=== PATIENT | female | born 1940 | race Hispanic/Latino ===

== ENCOUNTER 2021-07-25 07:50 | Day surgery (SDC) | payer MEDICARE ==
[2021-07-23 08:45] VITALS: BP 121/63
[2021-07-23 12:22] LABS: BASOPHILS % (AUTO) 0.4 % (0.0-5.0); EOSINOPHILS % (AUTO) 1.5 % (0.0-8.0); HEMATOCRIT 39.3 % (36-48); LYMPHOCYTES % (AUTO) 25.7 % (21.0-51.0); MEAN CORPUSCULAR HEMOGLOBIN 34.8 pg (27.0-33.0); MEAN CORPUSCULAR HGB CONC 31.8 g/dL (32.0-36.0); MEAN CORPUSCULAR VOLUME 109.5 fL (79-99); NEUTROPHILS % (AUTO) 65.5 % (40.0-77.0); PLATELET COUNT (AUTO) 201 K/uL (130-400); RED BLOOD CELL COUNT(AUTO) 3.59 MIL/uL (4.00-5.50); RED CELL DISTRIBUTION WIDTH 15.3 % (11.0-15.5); WHITE BLOOD COUNT (AUTO) 9.3 K/uL (4.8-10.8)
[2021-07-23 12:34] LABS: CREATININE 1.7 mg/dL (0.5-1.5); POTASSIUM 5.4 mmol/L (3.5-5.1)
[2021-07-23 12:35] LABS: INR 0.99 (0.85-1.15); PROTHROMBIN TIME 10.8 SEC (9.6-11.6)
[2021-07-23 12:37] LABS: PARTIAL THROMBOPLASTIN TIME 27.2 SEC (26.3-35.5)
[2021-07-23 12:57] LABS: APPEARANCE,URINE Clear (CLEAR); BILIRUBIN,URINE Negative (NEGATIVE); COLOR,URINE Yellow (YELLOW); GLUCOSE, URINE (UA) Negative (NEGATIVE); KETONES,URINE Negative (NEGATIVE); LEUKOCYTE ESTERASE ,URINE Negative (NEGATIVE); NITRATE,URINE Negative (NEGATIVE); OCCULT BLOOD,URINE Negative (NEGATIVE); PROTEIN,URINE Negative (NEGATIVE)
[2021-07-23 13:19] LABS: B-TYPE NATRIURETIC PEPTIDE 309 pg/mL (0-100)
[~2021-07-25] VITALS: Ht 152.4 cm; Wt 92.7 kg
[2021-07-25] VITALS (9 sets, daily range): BP systolic 115–169; BP diastolic 55–101
[2021-07-25] MEDS ORDERED: 0.9%NACL 1000ML 1,000 ML IV ONE (09:04)
[2021-07-25] MEDS ORDERED: BUME2TAB5 PO ×2 (09:24→13:20)
[2021-07-25] MEDS ORDERED: OLME40TA18 PO (09:24)
[2021-07-25] MEDS ORDERED: POTA-202 PO (09:24)
[2021-07-25] MEDS ORDERED: OMEP40CA21 PO (09:24)
[2021-07-25] MEDS ORDERED: METH4TAB16 PO (09:24)
[2021-07-25] MEDS ORDERED: TRAM50TA4 PO (09:24)
[2021-07-25] MEDS ORDERED: PRAV20TA4 PO (09:24)
[2021-07-25] MEDS ORDERED: LEVO50CA4 PO (09:24)
[2021-07-25] MEDS ORDERED: CARV12.511 PO (09:24)
[2021-07-25] MEDS ORDERED: SODIUM BICARB 50MEQ 50ML VIAL 50 ML ONE (12:32)
[2021-07-25] MEDS ORDERED: LIDOCAINE HCL 1% MDV 50ML VIAL ONE (12:32)
[2021-07-25] MEDS ORDERED: FUROSEMIDE 20MG VIAL IV ONE (14:25)
== END 2021-07-25 16:59 | disposition home or self-care (01) ==
LOC: DAH 07:50
PROVIDERS: ATTEND Internal Medicine Cardiovascular Disease
DX: I50.32 Chronic diastolic (congestive) heart failure (principal); R60.9 Edema, unspecified; I48.20 Chronic atrial fibrillation, unspecified; I11.0 Hypertensive heart disease with heart failure; Z79.01 Long term (current) use of anticoagulants; Z79.890 Hormone replacement therapy; M06.9 Rheumatoid arthritis, unspecified; E11.51 Type 2 diabetes mellitus with diabetic peripheral angiopathy without gangrene; Z98.890 Other specified postprocedural states; Z90.49 Acquired absence of other specified parts of digestive tract; E66.01 Morbid (severe) obesity due to excess calories; Z68.41 Body mass index [BMI] 40.0-44.9, adult
CPT/HCPCS: 36415; 71045; 80048; 81003; 83880; 85025; 85610; 85730; 93005; 93451; A4215; A4216; A4221; A4222; A4223 ×2; A4606; A4663; C1894 ×2; J1644; J1940; J3490 ×2; J7030